=== PATIENT | male | born 1970 | race Hispanic/Latino ===

== ENCOUNTER 2018-02-13 10:35 | Emergency (ER) | payer OTHER ==
[~2018-02-13] VITALS: Ht 172.7 cm; Wt 72.6 kg
--- OUTSIDE RECORDS SUMMARY | 2018-02-13 10:38 | XMS REPORT | Summary of Care ---
Author Author Irina Francois Unknown Address Unknown Phone Unavailable Care Team Providers Care Knurling Machine Operator Name Role Phone LOPEZ P.A., GARTH Unavailable Unavailable ZOYA Klein, AYESHA Unavailable Unavailable ZOYA DING [place], AYESHA Maldonado Unavailable Unavailable Unavailable Unavailable Functional Status Name Dates Details Functional status health issues are not documented Status: Name Dates Details Cognitive status health issues are not documented Status: Problems Name Dates Details Body aches (780.96, R52) Status: Active Shortness of breath at rest (786.05, R06.02) Status: Active Heart palpitations (785.1, R00.2) Status: Active Abnormal glucose (790.29, R73.09) Status: Active Acute streptococcal pharyngitis (034.0, J02.0) Status: Active Right bundle branch block (RBBB) on electrocardiography (426.4, I45.10) Status: Active Nodule of right lung (793.11, R91.1) Status: Active Dyspnea (786.09, R06.00) Status: Active Medications Name Dates Details None - No Current Medications Active Amoxicillin-Pot Clavulanate 875-125 MG Oral Tablet TAKE 1 TABLET EVERY 12 HOURS DAILY. * Quantity: 20 Refills: 0 LOPEZ P.A., GARTH * Start : 19-Mar-2017 Active Allergies and Adverse Reactions Name Dates Details Naproxen TABS (Allergy) Status: Active Procedures Procedure Dates Details History of no history of surgery Completed Immunization Name Dates Details Immunizations not documented Family History Name Dates Details Family history of diabetes mellitus (V18.0, Z83.3) Status: Active Social History Name Dates Details - Status: Name Dates Details Never smoker Vital Signs Date Test Result Details [id number] BP Systolic 100 mm[Hg] Status: Comments: Location: LUE; Position: Sitting BP Diastolic 68 mm[Hg] Status: Comments: Location: LUE; Position: Sitting Height 68 in Status: Weight 159.375 lb Status: Body Mass Index Calculated 24.23 kg/m2 Status: Body Surface Area Calculated 1.86 m2 Status: Heart Rate 67 /min Status: Comments: Location: L Radial; Quality: Normal [id number] BP Systolic 111 mm[Hg] Status: Comments: Location: LUE; Position: Sitting BP Diastolic 75 mm[Hg] Status: Comments: Location: LUE; Position: Sitting Height 68 in Status: Weight 163.125 lb Status: Body Mass Index Calculated 24.8 kg/m2 Status: Body Surface Area Calculated 1.87 m2 Status: Heart Rate 58 /min Status: Temperature 97.7 f Status: Comments: Method: Temporal Respiration Rate 16 /min Status: O2 SAT 99 % Status: Results Date Description Value Details :43 [O] Flu Test (in Office ) Flu A neg (Normal) Flu B neg (Normal) :44 [O] Streptococcus Test Rapid (In Office) Group A Strep Screen positive (Abnormal) [id number] Tobacco Use Screening Completed DONE [id number] XRAY Chest 2 views 03128 Chest 2 views SEE NOTES Comments: EXAM: XR CHEST 2 VIEWSDATE: 03/19/2017 4:27 PM CSTINDICATION: R06.02 - R06.02 Shortness of breathCOMPARISON: NoneTECHNIQUE: PA and lateral chest radiographsFINDINGS: And 8 mm soft tissue de nsity ovoid opacity is seen over the rightupper lung laterally partially overlapping the right posterior fourth ribshadow. Minimal bilateral apical lung scarring is present. No other lungparenchymal or pleural abnormalities are seen. Seema and pulmonary vasculatureare normal. Cardiomediastinal silhouette is normal in appearance. No acutebony abnormality is identified. Multilevel spondylosis is seen in the thoracicspine.IMPRESSION: 1. 8 mm opacity over the right upper lung laterally on the PA view. If priorexams cannot be located to confirm at least 2 years of stability, CT scan ofthe chest with contrast be esvin mmended for further evaluation of this possiblepulmonary nodule.2. Mild scarring in the lung apices.--Read by: Cain Roman MDDictated Date/time: 03/20/17 08:25Electronically Signed by: Cain Roman MD 03/20/1807:27FINAL REPORT :09 [] LIPID PANEL WITH REFLEX TO DIRECT LDL CHOLESTEROL, TOTAL 222 mg/dl (Above high threshold) Range: <200 HDL CHOLESTEROL 51 mg/dl (Normal) Range: >40 TRIGLYCERIDES 107 mg/dl (Normal) Range: <150 LDL-CHOLESTEROL 149 {MG/DL__CAL} (Above high threshold) Comments: Reference range: <100 Desirable range <100 mg/dL for patients with CHD ordiabetes and <70 mg/dL for diabetic patients withknown heart disease. LDL-C is now calculated using the Brittany calculation, which is a validated novel method providing better accuracy than the Friedewald equation in the estimation of LDL- C. Antonio SS et al. MADISON. 2013;310(19): 1316-6805 (http://education.[employer]/faq/FNK699) CHOL/HDLC RATIO 4.4 {CALC} (Normal) Range: <5.0 NON HDL CHOLESTEROL 171 {MG/DL__CAL} (Above high threshold) Range: <130 Comments: For patients with diabetes plus 1 major ASCVD risk factor, treating to a non-HDL-C goal of <100 mg/dL (LDL-C of <70 mg/dL) is considered a therapeutic option. :09 [[facility]] CMP W/EGFR GLUCOSE 87 mg/dl (Normal) Range: 65-99 Comments: Fasting reference interval UREA NITROGEN (BUN) 15 mg/dl (Normal) Range: 7-25 CREATININE 1.07 mg/dl (Normal) Range: 0.60-1.35 eGFR NON- 83 {ML/MIN/1.7} (Normal) Range: > OR=60 eGFR 96 {ML/MIN/1.7} (Normal) Range: > OR=60 BUN/CREATININE RATIO NOT APPLICABLE {CALC} Range: 6-22 SODIUM 142 mmol/L (Normal) Range: 135-146 POTASSIUM 4.1 mmol/L (Normal) Range: 3.5-5.3 CHLORIDE 105 mmol/L (Normal) Range: 98-110 CARBON DIOXIDE 27 mmol/L (Normal) Range: 20-31 CALCIUM 9.5 mg/dl (Normal) Range: 8.6-10.3 PROTEIN, TOTAL 7.8 g/dl (Normal) Range: 6.1-8.1 ALBUMIN 4.4 g/dl (Normal) Range: 3.6-5.1 GLOBULIN 3.4 {G/DL__CALC} (Normal) Range: 1.9-3.7 ALBUMIN/GLOBULIN RATIO 1.3 {CALC} (Normal) Range: 1.0-2.5 BILIRUBIN, TOTAL 0.9 mg/dl (Normal) Range: 0.2-1.2 ALKALINE PHSPHATASE 66 u/l (Normal) Range: 40-115 AST 28 u/l (Normal) Range: 10-40 ALT 18 u/l (Normal) Range: 9-46 :09 [[facility]] CBC (INCLUDES DIFF/PLT) WHITE BLOOD CELL COUNT 4.5 {Thousand/u} (Normal) Range: 3.8-10.8 RED BLOOD CELL COUNT 5.13 {Million/uL} (Normal) Range: 4.20-5.80 HEMOGLOBIN 15.1 g/dl (Normal) Range: 13.2-17.1 HEMATOCRIT 44.3 % (Normal) Range: 38.5-50.0 MCV 86.4 fL (Normal) Range: 80.0-100.0 MCH 29.4 pg (Normal) Range: 27.0-33.0 MCHC 34.1 g/dl (Normal) Range: 32.0-36.0 RDW 13.1 % (Normal) Range: 11.0-15.0 PLATELET COUNT 243 {Thousand/u} (Normal) Range: 140-400 MPV 10.7 fL (Normal) Range: 7.5-12.5 ABSOLUTE NEUTROPHILS 2250 {cells/uL} (Normal) Range: 0827-8042 ABSOLUTE LYMPHOCYTES 1625 {cells/uL} (Normal) Range: 850-3900 ABSOLUTE MONOCYTES 414 {cells/uL} (Normal) Range: 200-950 ABSOLUTE EOSINOPHILS 162 {cells/uL} (Normal) Range: 15-500 ABSOLUTE BASOPHILS 50 {cells/uL} (Normal) Range: 0-200 NEUTROPHILS 50 % (Normal) LYMPHOCYTES 36.1 % (Normal) MONOCYTES 9.2 % (Normal) EOSINOPHILS 3.6 % (Normal) BASOPHILS 1.1 % (Normal) :09 [[facility]] TSH, 3RD GENERATION W/REFLEX TO FT4 Comments: REPORT COMMENT:FASTING:YES TSH, 3RD GENERATION W/REFLEX TO FT4 2.86 {MIU/L} (Normal) Range: 0.40-4.50 [id number] CT Chest wo contrast [id number] SEE NOTES Comments: EXAM: CT CHEST WITHOUT CONTRASTDATE: 03/26/2017 1:59 PM CSTINDICATION: - R91.1 Solitary pulmonary nfcthtT31.1 Solitary pulmonarynoduleTECHNIQUE: Volumetric CT acquisition of the chest w ithout contrast. Axial,sagittal and coronal reconstructions. Axial MIP images included.IV contrast: None.DLP: 360 mGy-cmCOMPARISON: No prior CT for comparison, chest radiograph 03/19/2017DISCUSSION:Lines and Tubes: None.Lower Neck: The visible portions or the lower neck and thyroid areunremarkable.Heart, Mediastinum, and Great Vessels: The heart is normal in size. Nopericardial effusion is seen. The aorta and main pulmonary trunk are withinnormal limits in caliber.Lymph Nodes: No hilar, mediastinal, axillary or internal mammarylymphadenopathy.Lungs/Pleura: Nodular biapical pleural thickening/scarring is noted, measuringup to 1.4 cm in the right lung apex. This finding likely correlates with theperipheral opacity seen on the recent chest radiograph from 03/19/2017.A 3 mm nodule seen along the left major fissure, likely representing aperifissural lymph node.Small calcified granulomas are seen in the right lower lobe.No pleural effusion or pneumothorax is seen.The central airways are patent. A small diverticulum is seen along the proximalright mainstem bronchus just beneath the terence.Esophagus and Upper abdomen: A punctate calcification in the right kidney mayrepresent a nonobstructing renal stone. The visualized upper abdominalstructures are otherwise unremarkable.Bones and Soft Tissues: No aggressive osseous lesion is seen. Mild degenerativechanges affect the spine.IMPRESSION:1. Peripheral biapical n odularity, likely correlating with the opacity seen onthe recent chest radiograph and likely representing pleural thickening/scarringrather than true nodularity. A follow-up CT thorax is recommended in 3-6 monthsto determine stability.2. Small calcified granulomas in the right lower lobe, possibly sequela ofprior granulomatous disease.3. Suspected punctate nonobstructing right renal stone.--Read by: Brett Pryor MDDictated Date/time: 03/26/17 15:14Electronically Signed by: Brett Pryor MD 03/26/1814:29FINAL REPORT Plan of Care Name Dates Details Planned Observations Planned Goals not documented Planned Encounters Appointment; AYESHA KENNY M.D. On: 22-Apr-2017 9:00 Instructions Name Dates Details Instructions not documented Encounters Appointment; GARTH MARROQUIN P.A. Encounter Diagnosis: Problem not documented On: 19-Mar-2017 15:00 Appointment; THEODORE ANGUIANO M.D. Encounter Diagnosis: Problem not documented On: 26-Mar-2017 15:00 Appointment; FERNANDO MOORE Encounter Diagnosis: Problem not documented On: 27-Mar-2017 16:00 Appointment; AYESHA KENNY M.D. Encounter Diagnosis: Problem not documented On: 22-Apr-2017 9:00
--- OUTSIDE RECORDS SUMMARY | 2018-02-13 10:38 | XMS REPORT | Clinical Summary ---
Author Author [facility] Organization [facility] Address Unknown Phone Unavailable Care Team Providers Care Pyrotechnic Mixer Name Role Phone Mary Carmen Howard MD PCP Allergies No Known Allergies Medications No known medications Active Problems Not on file Encounters Care Team Description Date Type Specialty Bryson Diggs MD 01/07/2018 Telephone Urology after 02/12/2017 Family History Medical History Relation Name Comments No Known Problems Brother No Known Problems Brother No Known Problems Father Diabetes Mother Arthritis Sister No Known Problems Sister Relation Name Status Comments Brother Alive Brother Alive Father Alive Mother Alive Sister Alive Sister Alive Social History Date Tobacco Use Types Packs/Day Years Used Never Smoker Alcohol Use Drinks/Week oz/Week Comments No Sex Assigned at Date Recorded Not on file Industry Job Start Date Occupation Not on file Not on file Not on file Travel End Travel History Travel Start No recent travel history available. Last Filed Vital Signs Not on file Plan of Treatment Care Team Description Date Type Specialty Bryson Diggs MD [address] [facility] [address] [place], [place] [id number] 02/18/2018 Office Visit Urology Health Maintenance Due Date Last Done Comments INFLUENZA VACCINE 09/11/2017 Results Not on fileafter 02/12/2017 Insurance Payer Benefit Subscriber ID Type Phone Address Plan / Group AETNA AETNA xxxxxxxxxx HMO HMO,POS,EP O, MC/EC Advance Directives Patient has advance care planning documents on file. For more information, pleas e contact: Donnell Chacon [address] [facility] [place] [address]
[2018-02-13] MEDS ORDERED: IBUPROFEN 600 MG TAB PO STA (11:25)
[2018-02-13] MEDS ORDERED: ACETAMINOPHEN 325 MG TAB PO ONE (11:30)
[2018-02-13] MEDS ORDERED: SODIUM CHLORIDE 0.9% 1000ML 1,000 ML IV STA (11:33)
--- NOTE | 2018-02-13 11:41 | NUR ---
PATIENT BROUGHT BACK IN TO TRIAGE TO MEDICATE. EVALUATED BY SADIE Reed
--- NOTE | 2018-02-13 11:42 | NUR ---
PT C/O OF PAIN TO LEFT SIDE OF NECK.
[2018-02-13 12:10] LABS: BILIRUBIN,URINE NEGATIVE (NEGATIVE); CLARITY,URINE SL CLOUDY (CLEAR); COLOR,URINE YELLOW (YELLOW); KETONES,URINE NEGATIVE (NEGATIVE); LEUKOCYTE ESTERASE ,URINE NEGATIVE (NEGATIVE); NITRITE,URINE NEGATIVE (NEGATIVE); PROTEIN,URINE DIPSTICK NEGATIVE (NEGATIVE); URINE UROBILINOGEN 0.2 mg/dL (0.2 - 1)
[2018-02-13 12:20] LABS: EPITHELIAL CELLS,URINE RARE /LPF; RBC,URINE 0-5 /HPF (0-5)
[2018-02-13 13:09] LABS: BASOPHILS % 0.2 % (0.0-1.0); EOSINOPHILS # (AUTO) 0.4 (0.0-0.4); EOSINOPHILS % 6.5 % (0.0-6.0); HEMATOCRIT 46.4 % (38.2-49.6); HEMOGLOBIN 15.8 g/dL (14.0-18.0); LYMPHOCYTES # (AUTO) 0.5 (1.0-3.2); LYMPHOCYTES % 7.5 % (18.0-39.1); MEAN CORPUSCULAR HEMOGLOBIN 28.8 pg (28-32); MEAN CORPUSCULAR HGB CONC 34.1 g/dL (31-35); MEAN CORPUSCULAR VOLUME 84.7 fL (81-99); MONOCYTES # (AUTO) 0.8 (0.2-0.8); MONOCYTES % 13.2 % (4.4-11.3); NEUTROPHILS # (AUTO) 4.5 (2.1-6.9); NEUTROPHILS % 72.1 % (38.7-80.0); PLATELET COUNT 172 x10e3/uL (140-360); RED BLOOD COUNT 5.48 x10e6/uL (4.3-5.7); RED CELL DISTRIBUTION WIDTH 11.9 % (11.7-14.4)
[2018-02-13 13:26] LABS: STREPTOCOCCUS GRP A ANTIGEN NEGATIVE (NEGATIVE)
[2018-02-13 13:30] LABS: ALBUMIN 4.2 g/dL (3.5-5.0); ANION GAP 14.3 mmol/L (8-16); CALCIUM 9.6 mg/dL (8.4-10.2); CREATININE, SERUM 1.45 mg/dL (0.72-1.25); POTASSIUM 4.3 mmol/L (3.5-5.1)
[2018-02-13 13:34] LABS: INFLUENZAE A&B ANTIGEN (RAPID) NEGATIVE (NEGATIVE)
== END 2018-02-13 15:37 | disposition home or self-care (01) ==
LOC: ER 10:35
DX: R50.9 Fever, unspecified (principal); B34.9 Viral infection, unspecified; E86.0 Dehydration
CPT/HCPCS: 36415; 80053; 81001; 83518; 85025; 87070; 87400; 99284; J7030